=== PATIENT | male | born 1980 | race Caucasian/White ===

== ENCOUNTER 2020-10-23 11:55 | Day surgery (SDC) | payer BC ==
[2020-10-22 10:01] LABS: HEMATOCRIT 52.3 % (42-54); MEAN CORPUSCULAR HEMOGLOBIN 28.3 pg (27.0-33.0); MEAN CORPUSCULAR HGB CONC 33.3 g/dL (32.0-36.0); RED BLOOD CELL COUNT(AUTO) 6.15 MIL/uL (4.50-6.20); RED CELL DISTRIBUTION WIDTH 13.5 % (11.0-15.5); WHITE BLOOD COUNT (AUTO) 10.4 K/uL (4.8-10.8)
[2020-10-22 10:12] LABS: APPEARANCE,URINE Clear (CLEAR); BILIRUBIN,URINE Negative (NEGATIVE); COLOR,URINE Yellow (YELLOW); GLUCOSE, URINE (UA) Negative (NEGATIVE); KETONES,URINE Negative (NEGATIVE); LEUKOCYTE ESTERASE ,URINE Negative (NEGATIVE); NITRATE,URINE Negative (NEGATIVE); OCCULT BLOOD,URINE Negative (NEGATIVE); PROTEIN,URINE Negative (NEGATIVE)
[2020-10-22 10:12] LABS: INR 1.07 (0.85-1.15); PROTHROMBIN TIME 11.6 SEC (9.6-11.6)
[2020-10-22 10:13] LABS: PARTIAL THROMBOPLASTIN TIME 24.8 SEC (26.3-35.5)
[2020-10-22 10:14] LABS: ALBUMIN 3.9 g/dL (3.5-5.0); BILIRUBIN,TOTAL 0.4 mg/dL (0.2-1.0); CREATININE 1.1 mg/dL (0.5-1.5); POTASSIUM 4.6 mmol/L (3.5-5.1); TOTAL PROTEIN, SERUM 7.5 g/dL (6.0-8.3)
[2020-10-22 12:54] VITALS: BP 155/74
[2020-10-23] VITALS (12 sets, daily range): BP systolic 105–139; BP diastolic 48–79
[~2020-10-23] VITALS: Ht 190.5 cm; Wt 126.6 kg
[~2020-10-23 11:55] MED LIST: LACTATED RINGERS 1000ML 1,000 ML IV SCH; TESTOSTERONE IM
[2020-10-23] MEDS: CEFAZOLIN SODIUM 1 GM VIAL IVP SCH ×2 (12:45→12:57)
[2020-10-23] MEDS ORDERED: MIDAZOLAM HCL 1 MG/ML 2ML VIAL ONE (12:50)
[2020-10-23] MEDS ORDERED: FENTANYL CITRATE PF 50 MCG/1 ML 2ML VIAL ONE (12:54)
[2020-10-23] MEDS ORDERED: ROCURONIUM 10MG/1ML SYR 10 MG/ML ML ONE (12:54)
[2020-10-23] MEDS ORDERED: PROPOFOL 10 MG/ML 20ML VIAL IV ONE (12:54)
[2020-10-23] MEDS ORDERED: LIDOCAINE HCL MPF 1% 5ML VIAL ONE (12:54)
[2020-10-23] MEDS ORDERED: EPINEPHRINE PF 1MG AMP ONE (13:04)
[2020-10-23] MEDS ORDERED: LIDOCAINE HCL 1% 20 ML VIAL ONE (13:04)
[2020-10-23] MEDS ORDERED: BACITRACIN 28.4 GM OINT TP ONE (13:34)
== END 2020-10-23 15:15 | disposition home or self-care (01) ==
LOC: DAH 11:55
PROVIDERS: ATTEND Urology
DX: Z30.2 Encounter for sterilization (principal); Z20.822 Contact with and (suspected) exposure to COVID-19; E66.9 Obesity, unspecified; E29.1 Testicular hypofunction; D75.1 Secondary polycythemia; Z90.89 Acquired absence of other organs; Z98.890 Other specified postprocedural states; Z82.49 Family history of ischemic heart disease and other diseases of the circulatory system; Z68.35 Body mass index [BMI] 35.0-35.9, adult; Z79.01 Long term (current) use of anticoagulants; Z79.899 Other long term (current) drug therapy
CPT/HCPCS: 36415; 71046; 80053; 81003; 85027; 85610; 85730; 87088; 87635; 93005; C1769; C9803; J0171; J0690; J2250; J2704; J3010; J3490; J7030; J7120

== ENCOUNTER 2020-10-26 14:29 | Inpatient (IN) | payer BC ==
[~2020-10-26] VITALS: Ht 190.5 cm; Wt 125.6 kg
[~2020-10-26 14:29] MED LIST changes: -LACTATED RINGERS 1000ML 1,000 ML IV SCH
[2020-10-26 15:46] LABS: BASOPHILS % (AUTO) 0.9 % (0.0-5.0); EOSINOPHILS % (AUTO) 2.3 % (0.0-8.0); HEMATOCRIT 52.4 % (42-54); LYMPHOCYTES % (AUTO) 37.3 % (21.0-51.0); MEAN CORPUSCULAR HEMOGLOBIN 27.8 pg (27.0-33.0); MEAN CORPUSCULAR HGB CONC 32.4 g/dL (32.0-36.0); MEAN CORPUSCULAR VOLUME 85.8 fL (79-99); MONOCYTES % (AUTO) 8.6 % (3.0-13.0); NEUTROPHILS % (AUTO) 50.5 % (40.0-77.0); PLATELET COUNT (AUTO) 360 K/uL (130-400); RED BLOOD CELL COUNT(AUTO) 6.11 MIL/uL (4.50-6.20); RED CELL DISTRIBUTION WIDTH 13.5 % (11.0-15.5); WHITE BLOOD COUNT (AUTO) 9.3 K/uL (4.8-10.8)
[2020-10-26 15:54] LABS: CREATININE 1.3 mg/dL (0.5-1.5); POTASSIUM 5.2 mmol/L (3.5-5.1)
[2020-10-26 15:59] LABS: ALBUMIN 4.1 g/dL (3.5-5.0); BILIRUBIN,TOTAL 0.3 mg/dL (0.2-1.0); TOTAL PROTEIN, SERUM 7.7 g/dL (6.0-8.3)
[2020-10-26] MEDS ORDERED: ONDANSETRON 4MG INJ IVP STA (16:44)
[2020-10-26] MEDS ORDERED: MORPHINE 2 MG SYG IVP STA (16:44)
[2020-10-26] MEDS ORDERED: ONDANSETRON 4MG INJ ONE ×2 (16:47→16:48)
[2020-10-26] MEDS ORDERED: ZOSYN 3.375GM+NS 50ML 50 ML ONE (16:47)
[2020-10-26] MEDS ORDERED: MORPHINE 2 MG SYG ONE (16:48)
[2020-10-26] MEDS ORDERED: 0.9%NACL 50ML 50 ML IV ONE (16:51)
[2020-10-26 17:17] VITALS: BP 170/83
[2020-10-26] MEDS ORDERED: IOHEXOL 350 MG/ML 100ML INFUS..BTL IV ONE (17:34)
[2020-10-26] MEDS ORDERED: LORAZEPAM 2 MG/ML 1 ML VIAL ONE (17:40)
[2020-10-26] MEDS ORDERED: LORAZEPAM 2 MG/ML 1 ML VIAL IVP ONE (18:00)
[2020-10-26] MEDS: 0.9%NACL 1000ML 1,000 ML IV SCH ×2 (18:15→18:25)
[2020-10-26] MEDS: LACTATED RINGERS 1000ML 1,000 ML IV SCH (19:30)
[2020-10-26] MEDS ORDERED: ACETAMINOPHEN 325 MG TAB PO PRN (19:30)
[2020-10-26 20:06] LABS: INR 1.02 (0.85-1.15); PROTHROMBIN TIME 11.1 SEC (9.6-11.6)
[2020-10-26 20:08] LABS: PARTIAL THROMBOPLASTIN TIME 24.7 SEC (26.3-35.5)
[2020-10-26] MEDS ORDERED: NAPROXEN 250 MG TAB ONE (20:12)
[2020-10-26] MEDS: ZOSYN 3.375GM+NS 50ML 50 ML IV SCH (21:00)
[2020-10-26] MEDS: NAPROXEN 500 MG TABLET PO SCH (21:13)
[2020-10-26 21:41] VITALS: BP 153/80
[2020-10-27] VITALS (9 sets, daily range): BP systolic 124–168; BP diastolic 63–89
[2020-10-27] MEDS: LACTATED RINGERS 1000ML 1,000 ML IV SCH ×2 (04:50→15:30)
[2020-10-27] MEDS: ZOSYN 3.375GM+NS 50ML 50 ML IV SCH ×3 (04:50→20:32)
[2020-10-27 06:43] LABS: BASOPHILS % (AUTO) 0.9 % (0.0-5.0); EOSINOPHILS % (AUTO) 3.6 % (0.0-8.0); HEMATOCRIT 49.8 % (42-54); LYMPHOCYTES % (AUTO) 29.7 % (21.0-51.0); MEAN CORPUSCULAR HEMOGLOBIN 27.9 pg (27.0-33.0); MEAN CORPUSCULAR HGB CONC 32.1 g/dL (32.0-36.0); MEAN CORPUSCULAR VOLUME 86.9 fL (79-99); MONOCYTES % (AUTO) 10.5 % (3.0-13.0); NEUTROPHILS % (AUTO) 54.7 % (40.0-77.0); PLATELET COUNT (AUTO) 312 K/uL (130-400); RED BLOOD CELL COUNT(AUTO) 5.73 MIL/uL (4.50-6.20); RED CELL DISTRIBUTION WIDTH 13.5 % (11.0-15.5); WHITE BLOOD COUNT (AUTO) 8.8 K/uL (4.8-10.8)
[2020-10-27 07:01] LABS: CREATININE 1.4 mg/dL (0.5-1.5); MAGNESIUM 1.8 mg/dL (1.80-2.40); PHOSPHORUS 3.9 mg/dL (2.5-4.9); POTASSIUM 4.7 mmol/L (3.5-5.1)
[2020-10-27] MEDS: NAPROXEN 500 MG TABLET PO SCH ×2 (08:38→20:32)
[2020-10-27] MEDS: FAMOTIDINE 20MG TAB PO SCH (08:38)
[2020-10-27 10:25] LABS: ALANINE AMINOTRANSFERASE 208 U/L (12-78); ALBUMIN 3.9 g/dL (3.5-5.0); ASPARTATE AMINOTRANSFERASE 92 U/L (10-37); BILIRUBIN,DIRECT 0.1 mg/dL (0.0-0.3); BILIRUBIN,TOTAL 0.5 mg/dL (0.2-1.0); TOTAL PROTEIN, SERUM 6.9 g/dL (6.0-8.3)
[2020-10-27 11:23] LABS: CRP QUANTITATIVE < 2.00 mg/L (0.00-9.0)
[2020-10-27] MEDS: MORPHINE 4 MG SYG IV PRN ×2 (14:25→20:33)
[2020-10-27 18:54] LABS: APPEARANCE,URINE Clear (CLEAR); BILIRUBIN,URINE Negative (NEGATIVE); COLOR,URINE Yellow (YELLOW); GLUCOSE, URINE (UA) Negative (NEGATIVE); KETONES,URINE Negative (NEGATIVE); LEUKOCYTE ESTERASE ,URINE Negative (NEGATIVE); NITRATE,URINE Negative (NEGATIVE); OCCULT BLOOD,URINE Negative (NEGATIVE); PROTEIN,URINE Negative (NEGATIVE); UROBILINOGEN,URINE 0.2 mg/dL (0.2-1.0)
[2020-10-27] MEDS: ONDANSETRON 4MG INJ IV PRN (20:44)
[2020-10-28] MEDS: LACTATED RINGERS 1000ML 1,000 ML IV SCH (01:13)
[2020-10-28 03:44] VITALS: BP 128/69
[2020-10-28] MEDS: ZOSYN 3.375GM+NS 50ML 50 ML IV SCH (04:52)
[2020-10-28] MEDS: MORPHINE 4 MG SYG IV PRN (05:01)
[2020-10-28] MEDS: ONDANSETRON 4MG INJ IV PRN (05:01)
[2020-10-28 07:05] VITALS: BP 116/63
[2020-10-28 08:15] LABS: HEPATITIS A ANTIBODY IGM Negative (Negative); HEPATITIS B CORE IGM Negative (Negative); HEPATITIS Bs ANTIGEN SCREEN P Negative (Negative)
[2020-10-28] MEDS ORDERED: MAGNESIUM 2GM PREMIX 50ML 50 ML IV SCH (08:30)
[2020-10-28] MEDS: FAMOTIDINE 20MG TAB PO SCH (08:32)
[2020-10-28] MEDS: NAPROXEN 500 MG TABLET PO SCH (08:35)
[2020-10-28 11:05] VITALS: BP 123/78
[2020-10-28] MEDS ORDERED: NAPR-1023 PO (11:11)
== END 2020-10-28 15:00 | disposition home or self-care (01) | DRG 730 ==
LOC: EDH 14:29 → EDHIP 19:12 → 3AH 10-27 04:49
PROVIDERS: ADMIT Internal Medicine; ATTEND Internal Medicine
DX: N50.89 Other specified disorders of the male genital organs (principal); I95.9 Hypotension, unspecified; E83.42 Hypomagnesemia; R58 Hemorrhage, not elsewhere classified; Z20.822 Contact with and (suspected) exposure to COVID-19; Z98.52 Vasectomy status; Z82.49 Family history of ischemic heart disease and other diseases of the circulatory system
CPT/HCPCS: 36415; 71046; 74178; 76870; 80048; 80053; 80074; 80076; 81003; 83605; 83735; 84100; 84145; 85025; 85027; 85610; 85651; 85730; 86140; 86850; 86900; 86901; 87040; 87088; 87635; 93005; C1769; C9803; G0378; J0171; J0690; J2060; J2250; J2270; J2405; J2543; J2704; J3010; J3490; J7030; J7120; Q9967